=== PATIENT | female | born 1985 | race Caucasian/White ===

== ENCOUNTER 2017-11-03 07:55 | Inpatient (IN) | payer OTHER ==
[~2017-11-03 07:55] MED LIST: METHYLERGONOVINE 0.2 MG INJ
[2017-11-03] MEDS ORDERED: CARBOPROST 250 MCG INJ IM ×2 (08:30→16:00)
[2017-11-03] MEDS ORDERED: OXYTOCIN 30 UNITS/LR 500 ML IV ×4 (08:30→16:00)
[2017-11-03] MEDS ORDERED: METHYLERGONOVINE 0.2 MG INJ IM (08:30)
[2017-11-03] MEDS ORDERED: MISOPROSTOL 200 MCG TAB PR ×2 (08:30→16:00)
[2017-11-03 08:39] LABS: ADD MAN DIFF? NO
[2017-11-03 08:41] LABS: WHITE BLOOD COUNT 5.2 10^3/ul (4.8-10.8)
[2017-11-03 08:41] LABS: BASOPHIL # 0.1 10^3/ul (0.0-0.1); EOSINOPHILS # 0.1 10^3/ul (0.0-0.5); EOSINOPHILS % 1.9 % (0.0-7.0); HEMATOCRIT 38.2 % (37.0-47.0); HEMOGLOBIN 13.1 g/dl (12.0-16.0); LYMPHOCYTES # 0.9 10^3/ul (0.8-2.9); LYMPHOCYTES % 16.7 % (15.0-51.0); MEAN CORPUSCULAR HEMOGLOBIN 30.8 pg (29.0-33.0); MEAN CORPUSCULAR HGB CONC 34.3 g/dl (32.0-37.0); MEAN CORPUSCULAR VOLUME 89.9 fl (82.0-101.0); MEAN PLATELET VOLUME 10.3 fl (7.4-10.4); MONOCYTE # 0.6 10^3/ul (0.3-0.9); MONOCYTES % 10.6 % (0.0-11.0); NEUTROPHIL # 3.6 10^3/ul (1.6-7.5); NEUTROPHILS % 68.8 % (39.0-77.0); PLATELET COUNT 234 10^3/UL (140-415); RED BLOOD COUNT 4.25 10^6/ul (4.20-5.40); RED CELL DISTRIBUTION WIDTH 13.2 % (11.5-14.5)
[2017-11-03 09:07] LABS: INR 0.91; PROTIME 12.3 Sec (11.9-14.9)
[2017-11-03 09:08] LABS: PARTIAL THROMBOPLASTIN TIME 26.9 Sec (25.0-35.0)
[2017-11-03] MEDS: LACTATED RINGER'S 1,000 ML IV ×4 (09:11→23:59)
[2017-11-03 12:12] LABS: HEPATITIS B SURFACE ANTIGEN NEGATIVE (NEGATIVE)
[2017-11-03] MEDS: FAMOTIDINE 20 MG INJ IV (13:49)
[2017-11-03] MEDS: METOCLOPRAMIDE 10 MG INJ IV (13:49)
[2017-11-03] MEDS: CITRIC ACID/SODIUM CITRATE 15 ML CUP PO (13:49)
[2017-11-03] MEDS ORDERED: morphine SULFATE/PF (10 MG/10 ML) INJ (14:44)
[2017-11-03] MEDS ORDERED: BUPIVACAINE 0.75%/DEXT (SPINAL) 2 ML INJ (14:44)
[2017-11-03] MEDS ORDERED: PHENYLephrine (100 MCG/ML) 5ML SYG (14:59)
[2017-11-03] MEDS ORDERED: ONDANSETRON 4 MG INJ (15:13)
[2017-11-03] MEDS ORDERED: KETOROLAC 30 MG INJ IV (16:00)
[2017-11-03] MEDS ORDERED: HYDROmorphONE (0.2 MG/ML) 10ML SYG IV (16:00)
[2017-11-03] MEDS ORDERED: ONDANSETRON 4 MG INJ IV (16:00)
[2017-11-03] MEDS ORDERED: FENTAnyl 50 MCG/ML VIAL IV (16:00)
[2017-11-03] MEDS ORDERED: OXYCODONE/ACETAMINOPHEN (5/325) TAB PO (16:00)
[2017-11-03] MEDS ORDERED: DIPHENHYDRAMINE 50 MG INJ IV ×2 (16:00→17:30)
[2017-11-03] MEDS ORDERED: MEPERIDINE 25 MG INJ IV (16:00)
[2017-11-03] MEDS ORDERED: METHYLERGONOVINE 0.2 MG TAB PO (16:00)
[2017-11-03] MEDS ORDERED: PROCHLORPERAZINE 10 MG INJ IV (16:00)
[2017-11-03] MEDS ORDERED: NALOXONE (0.4 MG/ML) INJ IV (17:30)
[2017-11-03] MEDS ORDERED: ZOLPIDEM 5 MG TAB PO (17:30)
[2017-11-03] MEDS ORDERED: HYDROmorphONE 0.5 MG/0.5 ML SYG IV ×2 (17:30)
[2017-11-03] MEDS: MAGNESIUM SULFATE 4 GM/100 ML 100 ML IVPB (18:10)
[2017-11-03 18:15] LABS: RAPID PLASMA REAGIN NONREACTIVE (NR)
[2017-11-03] MEDS: METHYLERGONOVINE 0.2 MG INJ IM (18:28)
[2017-11-03] MEDS: CEFAZOLIN 2 GM/50 ML (PMX) 50 ML IV (18:28)
[2017-11-03] MEDS: MAGNESIUM SULFATE 20 GM/500 ML 500 ML IV (18:40)
[2017-11-03 19:05] LABS: ADD UMIC NO; UR ASCORBIC ACID NEGATIVE (NEGATIVE); UR BILIRUBIN (Dip) NEGATIVE (NEGATIVE); UR BLOOD (Dip) NEGATIVE (NEGATIVE); UR CLARITY CLEAR (CLEAR); UR COLOR STRAW (YELLOW); UR GLUCOSE (Dip) NEGATIVE (NEGATIVE); UR KETONES (Dip) TRACE mg/dL (NEGATIVE); UR LEUKOCYTE ESTERASE (Dip) NEGATIVE Leu/ul (NEGATIVE); UR NITRITE (Dip) NEGATIVE (NEGATIVE); UR SPECIFIC GRAVITY (Dip) 1.008 (1.003-1.030); UR TOTAL PROTEIN (Dip) NEGATIVE (NEGATIVE); UR UROBILINOGEN (Dip) NEGATIVE (NEGATIVE)
[2017-11-03 19:09] LABS: ADD MAN DIFF? NO
[2017-11-03 19:16] LABS: WHITE BLOOD COUNT 11.1 10^3/ul (4.8-10.8)
[2017-11-03 19:16] LABS: BASOPHIL # 0.1 10^3/ul (0.0-0.1); BASOPHILS % 0.5 % (0.0-2.0); EOSINOPHILS % 0.4 % (0.0-7.0); HEMATOCRIT 40.8 % (37.0-47.0); LYMPHOCYTES # 1.1 10^3/ul (0.8-2.9); LYMPHOCYTES % 10.1 % (15.0-51.0); MEAN CORPUSCULAR HEMOGLOBIN 30.8 pg (29.0-33.0); MEAN CORPUSCULAR HGB CONC 34.3 g/dl (32.0-37.0); MEAN CORPUSCULAR VOLUME 89.7 fl (82.0-101.0); MONOCYTE # 0.5 10^3/ul (0.3-0.9); MONOCYTES % 4.7 % (0.0-11.0); NEUTROPHIL # 9.3 10^3/ul (1.6-7.5); NEUTROPHILS % 83.8 % (39.0-77.0); PLATELET COUNT 213 10^3/UL (140-415); RED BLOOD COUNT 4.55 10^6/ul (4.20-5.40)
[2017-11-03 19:37] LABS: ALANINE AMINOTRANSFERASE 33 IU/L (13-69); ALBUMIN 3.4 g/dl (3.3-4.9); ALBUMIN/GLOBULIN RATIO 1.13; ALKALINE PHOSPHATASE 335 IU/L (42-121); ANION GAP 13 (8-16); ASPARTATE AMINO TRANSFERASE 33 IU/L (15-46); BILIRUBIN,INDIRECT 0.2 mg/dl (0-1.1); BILIRUBIN,TOTAL 0.2 mg/dl (0.2-1.3); BLOOD UREA NITROGEN 7 mg/dl (7-20); CALCIUM 8.7 mg/dl (8.4-10.2); CARBON DIOXIDE 23 mmol/L (21-31); CHLORIDE 102 mmol/L (97-110); CREATININE 0.53 mg/dl (0.44-1.00); GLUCOSE 78 mg/dl (70-220); POTASSIUM 3.7 mmol/L (3.5-5.1); SODIUM 134 mmol/L (135-144); TOTAL PROTEIN 6.4 g/dl (6.1-8.1)
[2017-11-03] MEDS: SENNA/DOCUSATE NA (8.6MG/50MG) TAB PO (21:00)
[2017-11-03] MEDS: LANOLIN 7 GM TUBE TOP (21:28)
[2017-11-03] MEDS: CEFAZOLIN 1 GM/50 ML (PMX) 50 ML IV (22:31)
[2017-11-03] MEDS: OXYTOCIN 30 UNITS/LR 500 ML IV (23:33)
[2017-11-04 01:22] LABS: MAGNESIUM 5.3 mg/dl (1.7-2.5)
[2017-11-04] MEDS: MAGNESIUM SULFATE 20 GM/500 ML 500 ML IV (04:30)
[2017-11-04 08:20] LABS: ADD MAN DIFF? NO
[2017-11-04 08:21] LABS: ABNORMAL IP MESSAGE 1; BASOPHILS % 0.2 % (0.0-2.0); EOSINOPHILS # 0.1 10^3/ul (0.0-0.5); EOSINOPHILS % 0.8 % (0.0-7.0); HEMATOCRIT 36.3 % (37.0-47.0); HEMOGLOBIN 12.5 g/dl (12.0-16.0); LYMPHOCYTES # 0.5 10^3/ul (0.8-2.9); MEAN CORPUSCULAR HEMOGLOBIN 30.9 pg (29.0-33.0); MEAN CORPUSCULAR HGB CONC 34.4 g/dl (32.0-37.0); MEAN CORPUSCULAR VOLUME 89.6 fl (82.0-101.0); MEAN PLATELET VOLUME 9.5 fl (7.4-10.4); MONOCYTE # 0.6 10^3/ul (0.3-0.9); MONOCYTES % 5.1 % (0.0-11.0); NEUTROPHILS % 89.6 % (39.0-77.0); PLATELET COUNT 191 10^3/UL (140-415); RED BLOOD COUNT 4.05 10^6/ul (4.20-5.40); RED CELL DISTRIBUTION WIDTH 13.2 % (11.5-14.5)
[2017-11-04 08:21] LABS: WHITE BLOOD COUNT 12.3 10^3/ul (4.8-10.8)
[2017-11-04 08:29] LABS: POSITIVE DIFF @See below
[2017-11-04 08:50] LABS: ANION GAP 8 (8-16); BLOOD UREA NITROGEN 6 mg/dl (7-20); CALCIUM 7.1 mg/dl (8.4-10.2); CARBON DIOXIDE 27 mmol/L (21-31); CHLORIDE 100 mmol/L (97-110); GLUCOSE 101 mg/dl (70-220); POTASSIUM 4.1 mmol/L (3.5-5.1); SODIUM 131 mmol/L (135-144)
[2017-11-04 08:58] LABS: MAGNESIUM 5.8 mg/dl (1.7-2.5)
[2017-11-04] MEDS: SENNA/DOCUSATE NA (8.6MG/50MG) TAB PO ×2 (09:07→21:31)
[2017-11-04] MEDS: OXYTOCIN 30 UNITS/LR 500 ML IV (09:14)
[2017-11-04] MEDS: KETOROLAC 30 MG INJ IV (11:44)
[2017-11-04 12:51] LABS: MAGNESIUM 5.8 mg/dl (1.7-2.5)
[2017-11-04] MEDS: LACTATED RINGER'S 1,000 ML IV (15:13)
[2017-11-04] MEDS: ONDANSETRON 4 MG INJ IV (15:14)
[2017-11-04] MEDS ORDERED: HYDROCODONE/APAP (5/325) TAB PO ×2 (16:00)
[2017-11-04] MEDS: IBUPROFEN 800 MG TAB PO (21:31)
[2017-11-05] MEDS: IBUPROFEN 800 MG TAB PO ×3 (05:36→22:11)
[2017-11-05] MEDS: BISACODYL 10 MG SUPP PR ×2 (05:37→14:59)
[2017-11-05] MEDS: MAGNESIUM HYDROXIDE 30ML CUP PO ×2 (05:37→14:59)
[2017-11-05] MEDS: SENNA/DOCUSATE NA (8.6MG/50MG) TAB PO ×2 (09:30→22:10)
[2017-11-06] MEDS: IBUPROFEN 800 MG TAB PO (06:05)
[2017-11-06] MEDS: SENNA/DOCUSATE NA (8.6MG/50MG) TAB PO (09:11)
[2017-11-06 09:33] LABS: ADD MAN DIFF? NO
[2017-11-06 09:34] LABS: BASOPHILS % 0.2 % (0.0-2.0); EOSINOPHILS # 0.3 10^3/ul (0.0-0.5); EOSINOPHILS % 3.9 % (0.0-7.0); HEMATOCRIT 33.8 % (37.0-47.0); LYMPHOCYTES # 0.7 10^3/ul (0.8-2.9); LYMPHOCYTES % 8.6 % (15.0-51.0); MEAN CORPUSCULAR HEMOGLOBIN 30.5 pg (29.0-33.0); MEAN CORPUSCULAR HGB CONC 32.5 g/dl (32.0-37.0); MEAN CORPUSCULAR VOLUME 93.6 fl (82.0-101.0); MEAN PLATELET VOLUME 9.9 fl (7.4-10.4); MONOCYTE # 0.5 10^3/ul (0.3-0.9); MONOCYTES % 5.7 % (0.0-11.0); NEUTROPHIL # 6.5 10^3/ul (1.6-7.5); NEUTROPHILS % 81.2 % (39.0-77.0); PLATELET COUNT 202 10^3/UL (140-415); RED BLOOD COUNT 3.61 10^6/ul (4.20-5.40); RED CELL DISTRIBUTION WIDTH 13.4 % (11.5-14.5)
[2017-11-06] MEDS: DIPHTH/TET/ACEL PERTUSS (ADULT) 0.5 ML VIAL IM* (11:31)
[2017-11-06] MEDS: MEASLES,MUMPS,RUBELLA VACCINE INJ SC* (12:48)
== END 2017-11-06 15:11 | disposition home or self-care (01) | DRG 766 ==
LOC: L-D 07:55 → PP1 20:05
PROVIDERS: Obstetrics & Gynecology
PROC: 10D00Z1 Extraction of Products of Conception, Low, Open Approach (ICD-10-PCS; principal; 2017-11-03 12:30)
PROC: 0UL70ZZ Occlusion of Bilateral Fallopian Tubes, Open Approach (ICD-10-PCS; 2017-11-03 12:30)
PROC: 3E033VJ Introduction of Other Hormone into Peripheral Vein, Percutaneous Approach (ICD-10-PCS; 2017-11-03 12:30)
DX: O34.211 Maternal care for low transverse scar from previous cesarean delivery (principal); N73.6 Female pelvic peritoneal adhesions (postinfective); Z30.2 Encounter for sterilization; Z3A.39 39 weeks gestation of pregnancy; Z37.0 Single live birth
CPT/HCPCS: 80048; 80053; 81003; 83735; 84560; 85025; 85610; 85730; 86592; 86850; 86900; 86901; 86920; 87340; 88302; 90715; 94760; 99464